=== PATIENT | female | born 1975 | race Caucasian/White ===

== ENCOUNTER → 2017-05-14 | Outpatient (CLI) | payer OTHER ==
--- NOTE | 2017-05-15 13:28 | MAMMOGRAPHY REPORT ---
BILATERAL DIGITAL SCREENING MAMMOGRAM TOMOSYNTHESIS WITH CAD: 05/14/2017 CLINICAL HISTORY: Routine screening. Patient has no complaints. TECHNIQUE: Breast tomosynthesis in addition to standard 2D mammography was performed. Current study was also evaluated with a Computer Aided Detection (CAD) system. COMPARISON: Comparison is made to exams dated: 05/10/2016 mammogram and 03/09/2015 mammogram - [facility]. BREAST COMPOSITION: There are scattered areas of fibroglandular density in both breasts. FINDINGS: The parenchymal pattern is unchanged. No developing mass, architectural distortion or clus ter of suspicious microcalcifications is seen in either breast. IMPRESSION: ACR BI-RADS CATEGORY 2: BENIGN There is no mammographic evidence of malignancy. A 1 year screening mammogram is recommended. The pa tient will receive written notification of the results. Approximately 10% of breast cancers are not detected with mammography. A negative mammographic report should not delay biopsy if a clinically suggestive mass is present. Marissa Kendrick M.D. ay/:05/14/2017 16:28:32 [employer] Metal Journeyman: Lourdes Barber RT(R)(M), [facility] letter sent: Normal 1/2 BI-RADS Code: ACR BI-RADS Category 2: Benign
== END | disposition home or self-care (01) ==
LOC: C.MAMM 07:14
PROVIDERS: ATTEND Physician Assistant Medical
DX: Z12.31 Encounter for screening mammogram for malignant neoplasm of breast (principal)

== ENCOUNTER → 2018-01-17 | Outpatient (CLI) | payer OTHER ==
--- NOTE | 2018-01-17 12:22 | DIAGNOSTIC IMAGING REPORT ---
ABDOMINAL ULTRASOUND, RIGHT UPPER QUADRANT HISTORY: Right upper quadrant tenderness. COMPARISON: None. FINDINGS: Exam is mildly compromised by suboptimal penetration. Hepatic echogenicity is increased consistent with fatty infiltration with suspected fatty sparing within the gallbladder fossa. The pancreas is largely obscured. There is no right hydronephrosis. There is no biliary ductal dilatation. There are numerous gallstones within the gallbladder. There is no gallbladder wall thickening. There is probable adenomyomatosis with comet tail artifact. IMPRESSION: 1. Cholelithiasis. No sonographic evidence of acute cholecystitis. 2. Fatty liver. 3. No biliary ductal dilatation. 4. Largely obscured pancreas. Electronically signed by: Kwame Gama M.D. 01/17/2018 12:21 PM Dictated Date/Time: 01/17/2018 12:17 PM
== END | disposition home or self-care (01) ==
LOC: C.ULTR 11:29
PROVIDERS: ATTEND Physician Assistant Medical
DX: R10.823 Right lower quadrant rebound abdominal tenderness (principal)

== ENCOUNTER → 2018-02-21 | Day surgery (SDC) | payer OTHER ==
[2018-02-08 08:04] VITALS: BMI 35.0
--- NOTE | 2018-02-08 08:35 | PAT Medication Instructions ---
Service Date Feb 08, 2018. Current Home Medication List Lisinopril (Zestril), 10 MG PO QAM Metoprolol Succ (Toprol Xl) (Toprol-Xl), 50 MG PO QAM Multivitamin (Multivitamin), 1 TAB PO QAM Omeprazole (Prilosec), 20 MG PO QAM Medication Instructions For Your Scheduled Surgery - Hold the following medications the morning of surgery: Lisinopril (Zestril), 10 MG PO QAM Multivitamin (Multivitamin), 1 TAB PO QAM - Take the following medications the morning of surgery with a sip of water: Metoprolol Succ (Toprol Xl) (Toprol-Xl), 50 MG PO QAM Omeprazole (Prilosec), 20 MG PO QAM If you have any questions please call us at [phone] or [phone] or [phone]
--- NOTE | 2018-02-08 08:54 | DIAGNOSTIC IMAGING REPORT ---
CHEST 2 VIEWS ROUTINE CLINICAL HISTORY: Preoperative chest COMPARISON STUDY: No previous studies for comparison. FINDINGS: The cardiac and mediastinal contours are normal. There is no evidence of focal pulmonary consolidation. There is no evidence of failure. No pleural effusions are visualized.[ IMPRESSION: No active disease in the chest. Electronically signed by: Santana Bullock M.D. 02/08/2018 8:53 AM Dictated Date/Time: 02/08/2018 8:53 AM
[2018-02-08 10:07] LABS: BASO % 0.4 %; BASO ABS # 0.03 K/uL (0-0.2); EOS % 2.2 %; EOS ABS # 0.18 K/uL (0-0.5); HEMATOCRIT 41.6 % (37-47); HEMOGLOBIN 14.2 g/dL (12.0-16.0); IG# 0.02 K/uL (0.00-0.02); LYMPH % 14.8 %; LYMPH ABS # 1.21 K/uL (1.2-3.4); MEAN CELL VOLUME 85.8 fL (80-100); MEAN CORPUSCULAR HEMOGLOBIN 29.3 pg (25-34); MEAN CORPUSCULAR HGB CONC 34.1 g/dl (32-36); MEAN PLATELET VOLUME 11.4 fL (7.4-10.4); MONO % 6.6 %; MONO ABS # 0.54 K/uL (0.11-0.59); NEUT % 75.8 %; NEUT ABS # 6.17 K/uL (1.4-6.5); PLATELET COUNT 347 K/uL (130-400); RED CELL DISTRIBUTION WIDTH CV 13.8 % (11.5-14.5); WHITE BLOOD COUNT 8.15 K/uL (4.8-10.8)
[2018-02-08 10:20] LABS: CALCIUM 9.7 mg/dl (8.5-10.1); CREATININE 0.66 mg/dl (0.60-1.20); POTASSIUM 3.5 mmol/L (3.5-5.1)
[~2018-02-21] VITALS: Ht 182.9 cm; Wt 119.0 kg
[~2018-02-21] MED LIST: ACETAMINOPHEN 1000 MG/100 ML IV IV ONE; ATROPINE SULFATE 0.1 MG/ML 5ML SYR IV PRN; CONRAY 60% 50 ML VIAL ONE; DEXAMETHASONE SOD INJ 4 MG/ML VIAL ONE; EpHEDrine SULFATE INJ 50 MG/ML AMP IV PRN; FENTANYL CITRATE INJ 50 MCG/1 ML 2 ML VIAL IV PRN; FENTANYL CITRATE INJ 50 MCG/1 ML 2 ML VIAL ONE; GLYCOPYRROLATE INJ 0.2 MG/ML VIAL ONE; HYDROmorphone INJ 0.5 MG/0.5 ML SYR IV PRN; LABETALOL HCL IV 5 MG/ML 20ML IV PRN; LACTATED RINGER'S 1000ML 1,000 ML IV SCH; LIDOCAINE HCL 2% 2 ML VIAL (20MG/ML) ONE; LIDOCAINE/EPINEPHRINE 1% 20 ML VIAL ONE; LISI-461 PO; MEPERIDINE HCL 25 MG/ML CARP IV PRN; METO50TA8 PO; MIDAZOLAM HCL 1 MG/ML 2ML VIAL ONE; MULT-506 PO; MoRPHine SULFATE 4 MG/ML 1 ML CARP\\VIAL IV PRN; NEOSTIGMINE METHYLSULFATE 5 MG/5 ML SYR ONE; ONDANSETRON INJ 2 MG/ML 2 ML VIAL IV PRN; ONDANSETRON INJ 2 MG/ML 2 ML VIAL ONE; OXYC-57 PO; OXYCODONE/ACETAMINOPHEN 5-325 TAB PO PRN; PRLSR20 PO; PROPOFOL IV EMULSION 10 MG/ML 20 ML VIAL IV ONE; ROCURONIUM BROMIDE 10 MG/ML 5 ML VIAL IV ONE
[2018-02-21 08:33] VITALS: BP 184/96; PULSE 75; TEMP 37.1; O2SAT 99; BMI 35.0
[2018-02-21 08:43] VITALS: BP 184/96; TEMP 37.1; O2SAT 99; Ht 182.9 cm; Wt 119.0 kg
--- NOTE | 2018-02-21 09:15 | Discharge Instructions ---
Discharge Instructions Date of Service Feb 21, 2018. Visit Reason for Visit: Cholelithiasis Discharge Discharge Diagnosis / Problem: laparoscopic cholecystectomy Discharge Goals Goal(s): Decrease discomfort Activity Recommendations Activity Limitations: as noted below Lifting Limitations: no more than 10 pounds Shower/Bathe: tomorrow Driving or Machine Use: resume 3 days after discharge Anesthesia . Post Anesthesia Instructions: If you have had General Anesthesia or IV Sedation: * Do not drive today. * Resume driving when surgeon permits. * Do not make important decisions or sign legal documents today. * Call surgeon for: 1. Temperature elevations greater than 101 degrees F. 2. Uncontrollable pain. 3. Excessive bleeding. 4. Persistent nausea and vomiting. 5. Medication intolerance (nausea, vomiting or rash). * For nausea and vomiting use only clear liquids such as: tea, soda, bouillon until nausea subsides, then gradually increase diet as tolerated. * If you have any concerns or questions, call your surgeon's office. If physician is unavailable and it is an emergency, call 911 or go to the nearest emergency room. . Instructions / Follow-Up Instructions / Follow-Up Dr. Levin in 1 week, call [phone] if you have any questions or do not have an appt Diet Recommendations Recommended Home Diet: no limitations Pending Studies Studies pending at discharge: no Medical Emergencies . Who to Call and When: Medical Emergencies: If at any time you feel your situation is an emergency, please call 911 immediately. . Non-Emergent Contact Non-Emergency issues call your: Surgeon Call Non-Emergent contact if: you have a fever, temperature is above 101.5, your pain is not controlled, you have any medication questions . . "Provider Documentation" section prepared by Luis Sierra. .
--- NOTE | 2018-02-21 09:15 | History & Physical Bridge Note ---
H&P Re-Evaluation Bridge Note: I have examined the patient, reviewed the History & Physical and in the interval since the performance of the History & Physical I have noted the following changes of clinical significance: No changes noted SO at bedside all questions answered
--- NOTE | 2018-02-21 10:23 | [facility] Post Operative Brief Note ---
Immediate Operative Summary Operative Date Feb 21, 2018. Pre-Operative Diagnosis Chronic calculous cholecystitis Post-Operative Diagnosis Chronic calculous cholecystitis Procedure(s) Performed Laparoscopic Cholecystectomy with Cholangiogram Surgeon Dr. Nathan Levin Web Marketing Strategist Surgeon(s) Luis Sierra PA-C Estimated Blood Loss 3ML Findings See Below ccc Specimens Permanent specimens A: Gallbladder and contents Anesthesia Type General
--- NOTE | 2018-02-21 10:24 | DIAGNOSTIC IMAGING REPORT ---
INTRAOPERATIVE CHOLANGIOGRAM HISTORY: Post cholecystectomy. FLUOROSCOPY TIME: 2 seconds. 3 fluoroscopic spot images of the right upper quadrant. FINDINGS: Fluoroscopy was provided for an intraoperative cholangiogram status post cholecystectomy. Contrast was injected through the cystic duct remnant. The common bile duct is normal in course and caliber. There are no filling defects seen within the common bile duct to suggest a retained stone. Contrast extends into the small bowel. There is no intrahepatic bile duct dilatation. IMPRESSION: Fluoroscopy provided for an intraoperative cholangiogram status post cholecystectomy. No filling defects within the common bile duct. Electronically signed by: Anish Rios M.D. 02/21/2018 10:23 AM Dictated Date/Time: 02/21/2018 10:22 AM
--- NOTE | 2018-02-21 11:09 | Anesthesiology Progress Note ---
Anesthesia Post Op Note Date & Time Feb 21, 2018 at 11:08 Vital Signs Pain Intensity: 2 Vital Signs Past 12 Hours Date Time Temp Pulse Resp B/P (MAP) Pulse Ox O2 Delivery O2 Flow Rate FiO2 02/21/18 11:05 63 21 122/71 93 Room Air 02/21/18 10:55 48 15 121/64 95 Oxymask 10 02/21/18 10:45 66 22 114/61 96 Oxymask 10 02/21/18 10:35 36.0 76 18 150/83 94 Oxymask 10 02/21/18 08:43 37.1 18 184/96 (125) 99 Room Air 02/21/18 08:33 37.1 75 18 184/96 (125) 99 Room Air Notes Mental Status: alert / awake / arousable, participated in evaluation Pt Amnestic to Procedure: Yes Nausea / Vomiting: adequately controlled Pain: adequately controlled Airway Patency, RR, SpO2: stable & adequate BP & HR: stable & adequate Hydration State: stable & adequate Anesthetic Complications: no major complications apparent
[2018-02-21 11:20] VITALS: BP 111/58; PULSE 67; TEMP 36.7; O2SAT 95
[2018-02-21 11:50] VITALS: BP 119/71; PULSE 60; O2SAT 96
[2018-02-21 12:22] VITALS: BP 147/76; PULSE 70; TEMP 36.7; O2SAT 96
--- NOTE | 2018-02-21 20:28 | OPERATIVE REPORT ---
DATE OF OPERATION: 02/21/2018 SURGEON: Nathan Levin MD. ASBESTOS HANDLER: Luis Sierra PA-C. PREOPERATIVE DIAGNOSES: Chronic cholecystitis, cholelithiasis. POSTOPERATIVE DIAGNOSES: Same. OPERATIVE PROCEDURE: Laparoscopic cholecystectomy, intraoperative cholangiogram. SUMMARY: After induction of general endotracheal anesthesia, the patient's abdomen was prepped with Betadine scrubbing solution and properly draped. A small incision was made supraumbilically sufficient enough to place a Veress needle, followed by a 5 mm trocar. Point of entry was inspected and no injury identified. Under direct visualization, a 5 mm epigastric and two 5 mm subcostal ports were inserted with preemptive local analgesia of 1% Xylocaine with epinephrine. Gallbladder was visualized, placed under traction and elevated. Adhesions to the gallbladder were taken down, which were many from the mid portion down to the karlie hepatis. We dissected these out, identified the triangle of Calot, dissected all free, identified the cystic duct which we clipped proximally. Small opening in the cystic duct was made. A #4 urethral catheter transversing abdominal wall was positioned in cystic duct. Serial x-rays were taken. There was no obstruction distally. It was hard to get any dye to go proximally, but she had a corkscrew over the cystic duct, therefore, the cholangiocath was then removed. The cystic duct was choked on a little bit and doubly clipped and divided. The artery similarly identified and an anterior branch was clipped and then a posterior branch similarly doubly clipped and divided. Gallbladder was removed in antegrade fashion using electrocautery from the liver bed. We left the posterior peritoneum as much as possible, did not enter the liver parenchyma. The gallbladder was placed in an Endopouch and taken out intact through the epigastric port. It was completely filled with bilirubinate stones. Subhepatic and suprahepatic areas were then checked, hemostasis appeared satisfactory. We then placed a camera in subcostal port to visualize the umbilical opening. There were no adhesions where the trocar went it, but the patient did have an umbilical hernia which there were some adhesions identified right at the level of the umbilical hernia, incision was above that. At this point, I elected not to do anything with the hernia since it would require probably some mesh placement and I will see how the patient does postoperatively in the office if she is having any discomfort. Individual trocars then removed, last the umbilical trocar. Wounds were closed with fascial suture of 0 Vicryl for the epigastric area, 4-0 Monocryl and Steri-Strips applied. The procedure was tolerated well by the patient. Estimated blood loss approximately 3 mL. The patient was taken to recovery room in good condition. I attest to the content of the Intraoperative Record and any orders documented therein. Any exception s are noted below.
== END | disposition home or self-care (01) ==
LOC: C.ACU 07:52
PROVIDERS: ATTEND Surgery
DX: K80.10 Calculus of gallbladder with chronic cholecystitis without obstruction (principal); I10 Essential (primary) hypertension; Z68.35 Body mass index [BMI] 35.0-35.9, adult; E66.9 Obesity, unspecified; Z88.0 Allergy status to penicillin; Z90.89 Acquired absence of other organs; Z90.710 Acquired absence of both cervix and uterus; Z82.49 Family history of ischemic heart disease and other diseases of the circulatory system; Z83.3 Family history of diabetes mellitus; Z80.3 Family history of malignant neoplasm of breast